=== PATIENT | female | born 1980 | race Caucasian/White ===

== ENCOUNTER → 2017-02-09 | Outpatient (CLI) | payer OTHER ==
--- NOTE | 2017-02-09 18:22 | Diagnostic Imaging Report ---
Transabdominal and transvaginal pelvic ultrasound. INDICATION: Uterine enlargement. FINDINGS: The uterus is 8.6 x 4.1 x 4.7 cm. The endometrial stripe is 1.9 cm in thickness. No internal vascularity is seen. No myometrial focal mass is seen. The right ovary is 3.4 x 2.7 x 2 cm. The left ovary is 3.9 x 2.6 x 3 cm. There is a 2.5 cm lesion with central cystic component seen in the left ovary suggestive of a corpus luteum cyst. There are arterial and venous waveforms demonstrated over both ovaries. IMPRESSION: There is endometrial thickening probably physiologic and related to secretory phase of the cycle at this time. Dictated by: Dictated on workstation # [id number]
== END ==
LOC: RAD 11:16
PROVIDERS: ATTEND Nurse Practitioner
DX: N85.2 Hypertrophy of uterus (principal)
CPT/HCPCS: 76830; 76856